=== PATIENT | male | born 1945 | race Caucasian/White ===

== ENCOUNTER → 2021-05-16 | Day surgery (SDC) | payer MEDICARE ==
[~2021-05-16] VITALS: Ht 185.4 cm; Wt 101.8 kg
[~2021-05-16] MED LIST: ASPIRIN EC81 MG PO; CENTRUM ADULTS1 EACH PO; LOVAZA1 GM PO; MOBIC7.5 MG PO; NORVASC5 MG PO; PRILOSEC20 MG PO; SYNTHROID75 MCG PO; TRIAMTERENE-HC1 EACH PO; VITAMIN D325 MC4 PO
== END | disposition home or self-care (01) ==
LOC: FAS 06:45
DX: Z12.11 Encounter for screening for malignant neoplasm of colon (principal); D12.5 Benign neoplasm of sigmoid colon; D12.3 Benign neoplasm of transverse colon; K57.30 Diverticulosis of large intestine without perforation or abscess without bleeding; C61 Malignant neoplasm of prostate; M19.90 Unspecified osteoarthritis, unspecified site; K21.9 Gastro-esophageal reflux disease without esophagitis; I10 Essential (primary) hypertension; E03.9 Hypothyroidism, unspecified; Z86.010 Personal history of colon polyps; Z80.0 Family history of malignant neoplasm of digestive organs; Z79.82 Long term (current) use of aspirin; Z90.49 Acquired absence of other specified parts of digestive tract; Z88.8 Allergy status to other drugs, medicaments and biological substances; Z96.659 Presence of unspecified artificial knee joint; Z72.89 Other problems related to lifestyle
CPT/HCPCS: J1610; J2704; J7120